=== PATIENT | male | born 1970 | race Two or more races ===

== ENCOUNTER 2020-04-16 05:12 | Emergency (ER) | payer OTHER ==
[~2020-04-16] VITALS: Ht 177.8 cm; Wt 111.1 kg
[2020-04-16] MEDS ORDERED: TAMS0.4C (05:32)
[2020-04-16] MEDS ORDERED: DETROL LA4 MG (05:33)
[2020-04-16] MEDS ORDERED: CIPRO500 MG PO (09:32)
[2020-04-16] MEDS ORDERED: LEVSIN/SL0.125 MG PO (09:32)
== END 2020-04-16 09:58 | disposition home or self-care (01) ==
LOC: ER 05:12
DX: R10.30 Lower abdominal pain, unspecified (principal); K62.5 Hemorrhage of anus and rectum; Z20.828 Contact with and (suspected) exposure to other viral communicable diseases